=== PATIENT | male | born 1955 | race Caucasian/White ===

== ENCOUNTER 2021-04-24 06:12 | Day surgery (SDC) | payer MEDICARE, MEDICAID ==
[~2021-04-24] VITALS: Ht 170.2 cm; Wt 78.1 kg
[2021-04-24] MEDS ORDERED: albumin 25% 100mL bottle x 1 IV PRN (06:45)
[2021-04-24 06:47] VITALS: BP 147/85
[2021-04-24] MEDS ORDERED: ATOR-2 PO (06:55)
[2021-04-24] MEDS ORDERED: FLUT16SP26 NAS (06:55)
[2021-04-24] MEDS ORDERED: NOVLG SQ (06:55)
[2021-04-24] MEDS ORDERED: PRIM250T8 PO (06:55)
[2021-04-24] MEDS ORDERED: METO-384 PO (06:55)
[2021-04-24] MEDS ORDERED: SERT-433 PO (06:55)
[2021-04-24] MEDS ORDERED: ALBU18HF2 INH (06:55)
[2021-04-24] MEDS ORDERED: OMEP40CA21 PO (06:55)
[2021-04-24] MEDS ORDERED: KEN0.1O TOP (06:55)
[2021-04-24] MEDS ORDERED: SUMA50TA17 PO (06:55)
[2021-04-24] MEDS ORDERED: vitamin d3 PO (06:55)
[2021-04-24] MEDS ORDERED: MELO-100 PO (06:55)
[2021-04-24] MEDS ORDERED: FLUT1AER INH (06:55)
[2021-04-24] MEDS ORDERED: INSU100V9 SQ (06:55)
[2021-04-24] MEDS ORDERED: METF-438 PO (06:55)
[2021-04-24 07:33] LABS: BASOPHILS # (AUTO) 0.1 X10'3 (0-0.2); EOSINOPHILS # (AUTO) 0.3 X10'3 (0-0.9); EOSINOPHILS % (AUTO) 4.6 % (0-6); HEMATOCRIT 45.4 % (42.0-52.0); HEMOGLOBIN 15.8 g/dl (14.0-17.9); LYMPHOCYTES # (AUTO) 3.1 X10'3 (1.1-4.8); LYMPHOCYTES % (AUTO) 50.2 % (21-51); MEAN CORPUSCULAR HEMOGLOBIN 32.5 PG (27.0-31.0); MEAN CORPUSCULAR HGB CONC 34.9 g/dL (33.0-36.5); MEAN CORPUSCULAR VOLUME 93.1 FL (78-98); MEAN PLATELET VOLUME 8.2 FL (7.4-10.4); MONOCYTES # (AUTO) 0.4 X10'3 (0-0.9); MONOCYTES % (AUTO) 6.5 % (2-12); NEUTROPHILS # (AUTO) 2.3 X10'3 (1.8-7.7); NEUTROPHILS % (AUTO) 37.7 % (42-75); PLATELET COUNT 165 X10'3 (140-440); RED BLOOD COUNT 4.87 X10'6 (4.70-6.10); RED CELL DISTRIBUTION WIDTH 14.9 % (11.5-14.5); WHITE BLOOD COUNT 6.1 X10'3 (4.5-11.0)
[2021-04-24] MEDS ORDERED: fentaNYL/PF 50MCG/1 ML 2ML syringe ONE (08:25)
[2021-04-24] MEDS ORDERED: gelatin sponge, absorbable (Gelfoam 12-7MM) sponge TP ONE (08:25)
[2021-04-24] MEDS ORDERED: midazolam 1 mg/ML 2ml injection ONE (08:25)
[2021-04-24] MEDS ORDERED: LIDOcaine 1% (10mg/ml) 2ml vial ONE (08:25)
[2021-04-24 08:30] VITALS: BP 146/89
[2021-04-24 09:00] VITALS: BP 142/82
== END 2021-04-24 09:15 | disposition home or self-care (01) ==
LOC: SSTAY O 06:12
PROVIDERS: ATTEND Radiology Vascular & Interventional Radiology
DX: R91.8 Other nonspecific abnormal finding of lung field (principal); Z53.8 Procedure and treatment not carried out for other reasons; J44.9 Chronic obstructive pulmonary disease, unspecified; E11.9 Type 2 diabetes mellitus without complications; Z79.899 Other long term (current) drug therapy; Z79.84 Long term (current) use of oral hypoglycemic drugs; Z79.01 Long term (current) use of anticoagulants
CPT/HCPCS: 36415; 71250; 85025; 85610; J2250; J3010; J3490